=== PATIENT | male | born 1970 | race Caucasian/White ===

== ENCOUNTER 2025-10-13 12:06 | Emergency (ER) | payer OTHER ==
[~2025-10-13] VITALS: Ht 182.9 cm; Wt 77.3 kg
[2025-10-13 12:13] VITALS: BP 118/61; PULSE 58; RESP 16; TEMP 98.6; O2SAT 99
[2025-10-13] MEDS ORDERED: BACITRACIN 0.9 GM PACKET OINTMENT TP ONE (12:45)
[2025-10-13] MEDS ORDERED: IBUP-1492 PO (13:33)
[2025-10-13] MEDS ORDERED: ACET-3385 PO (13:33)
== END 2025-10-13 14:59 | disposition home or self-care (01) ==
LOC: EMS 12:06
DX: S00.33XA Contusion of nose, initial encounter (principal); W22.8XXA Striking against or struck by other objects, initial encounter; Y93.89 Activity, other specified; Y92.89 Other specified places as the place of occurrence of the external cause; Y99.8 Other external cause status
CPT/HCPCS: 70450; 70486; 99284